=== PATIENT | female | born 1985 | race Caucasian/White ===

== ENCOUNTER 2020-09-14 07:58 | Outpatient (CLI) | payer BC, MEDICAID, SELFPAY ==
--- NOTE | 2020-09-14 08:22 | US_ITS ---
WS: [id number] ULTRASOUND ABDOMEN LIMITED CLINICAL INFORMATION: EPIGASTRIC ABDOMINAL PAIN COMPARISON: None. FINDINGS: Liver Size: Normal. Craniocaudal length: 15.3 cm. Echogenicity: Normal. Surface nodularity: None. Mass (size and location): None. Bile ducts Intrahepatic ducts: Normal. Common bile duct diameter: 0.3 cm. Gallbladder Cholelithiasis Gallstones: Present Gallbladder sludge: Present Gallbladder wall thickening: None. Pericholecystic fluid: None. Sonographic Rivera sign: Absent. Pancreas Not well seen Right kidney: Normal. Hydronephrosis: None. Size: 10.8 cm x 3.8 cm x 4.2 cm. Abdominal aorta and IVC Visualized portions are normal. Ascites: None. US/US abdomen limited [id number] IMPRESSION: 1. Normal liver. 2. Cholelithiasis with gallbladder sludge. No gallbladder wall thickening. Nor mal common bile duct. 3. No hydronephrosis in right kidney.
[2020-09-14 09:29] LABS: Basophils # 0.1 10^3/uL (0.0-0.1); Basophils % 0.8 %; Eosinophils # 0.6 10^3/uL (0.0-0.8); Eosinophils % 7.6 %; Hematocrit 42.8 % (37.0-47.0); Hemoglobin 13.2 g/dL (11.5-15.3); Lymphocytes # 1.9 10^3/uL (0.8-4.8); Mean Corpuscular HGB Conc 30.8 g/dL (30.0-36.0); Mean Corpuscular Hemoglobin 27.3 pg (28.0-34.0); Mean Corpuscular Volume 88.6 fL (81-99); Monocytes # 0.6 10^3/uL (0.2-0.9); Monocytes % 7.6 %; Neutrophils # 4.26 10^3/uL (1.8-7.7); Neutrophils % 57.6 %; Nucleated Red Blood Cells % 0 %; Platelet Count 345 10^3/cmm (130-400); Red Blood Count 4.83 10^6/uL (4.1-5.3); Red Cell Distribution Width 12.7 % (12.1-15.1); White Blood Count 7.4 10^3/uL (4.0-10.0)
[2020-09-14 09:49] LABS: Alanine Aminotransferase 30 U/L (0-33); Albumin Level 4.4 g/dL (3.5-5.2); Alkaline Phosphatase 81 IU/L (35-105); Aspartate Amino Transferase 20 U/L (0-32); Blood Urea Nitrogen 9 mg/dL (6-20); Calcium 8.8 mg/dL (8.5-10.5); Carbon Dioxide 27 mmol/L (22-29); Chloride 103 mmol/L (98-107); Globulin 2.8 g/dL (1.3-4.6); Glomerular Filtration Rate 94.2 mL/min (90-130); Glucose 102 mg/dL (65-115); Lipase 16 U/L (13-60); Osmolality Calculated 287 mOsm/kg (285-295); Sodium 139 mmol/L (136-145); Total Bilirubin 0.4 mg/dL (0.15-1.2); Total Protein 7.2 g/dL (6.6-8.7)
[2020-09-14 10:10] LABS: Anion Gap 13.5 (5-19)
[2020-09-14 10:11] LABS: Potassium 4.5 mmol/L (3.5-5.1)
== END 2020-09-14 07:59 | disposition home or self-care (01) ==
PROVIDERS: PCP Physician Assistant Medical; Visit Provider Physician Assistant Medical
DX: R10.13 Epigastric pain (principal); K80.20 Calculus of gallbladder without cholecystitis without obstruction
CPT/HCPCS: 36415; 76705; 80053; 83690; 85025

== ENCOUNTER → 2020-10-09 10:57 | Outpatient (BNVA) | payer BC, MEDICAID, SELFPAY | PROVIDERS: PCP Physician Assistant Medical; Visit Provider Surgery | DX: Z01.812 Encounter for preprocedural laboratory examination (principal); Z20.822 Contact with and (suspected) exposure to COVID-19 | CPT/HCPCS: 87635 ==

== ENCOUNTER 2020-10-14 10:02 | Day surgery (SDC) | payer BC, MEDICAID, SELFPAY ==
[2020-10-13 12:01] VITALS: BMI 28.3
[2020-10-14] VITALS (8 sets, daily range): BP systolic 122–136; BP diastolic 84–98; PULSE 74–104; RESP 14–20; TEMP 36.7–37.4; O2SAT 95–100
--- NOTE | 2020-10-14 10:23 | ANES.PREANE2 ---
Pre-Anesthetic Assessment Pre-Anesthetic Assessment: Height/Weight: Height 1.65 m Weight 77.111 kg Temp Pulse Resp BP Pulse Ox 99.3 F 90 18 123/98 98 10/14/20 10:17 10/14/20 10:17 10/14/20 10:17 10/14/20 10:17 10/14/20 10:17 Preop Diagnosis: Cholelithiasis Proposed Procedure: Operation Date: 10/14/20 12:05 Proposed Procedures p lap possible open cholecystectomy, [id number] k80.20(Not Applicable) - Derrick Beth MD s EGD(Not Applicable) - Derrick Beth MD Familial anesthetic complications: denies Was Beta Jeaneth taken within 24 hours: N/A Was Clonidine taken within 24 hours: N/A Last intake: Intake Last Liquid Date 10/13/20 Last Liquid Time 22:00 Last Solid Date 10/13/20 Last Solid Time 20:00 Last Intake: 00:00 Social: Social History: No alcohol and No tobacco Exam: Pre-Anes Outpt Exam: alert, oriented x 3, clear to auscultation bilaterally and regular rate & rhythm Airway: Submandibular: WNL Cervical ROM: WNL MP: 1 History/ROS: No significant history except as noted and No significant complaints Pulmonary: Pulmonary: None reported CV/HEM: CV/HEM: None reported : : None reported Hepatic: Hepatic: None reported GI: GI: GERD Metabolic: Metabolic: None reported Musc/skel: Musc/skel: None reported Neuropsych: Neuropsych: None reported Anesthetic Plan: ASA status: 2 Anesthesia: General Risk of > 500 ml blood loss (7ml/kg in children): No PFSH Anesthesia PFSH: Surgical History History of tubal ligation Family History Denies family history of Anesthesia complication Bleeding disorder Social History Smoking and tobacco status: never smoked Alcohol intake: never Female Reproductive History: Date of last menstrual period: 10/06/20 Data Anesthesia Cardiac Studies: No Data to Display
[2020-10-14 10:27] LABS: OR HCG Qualitative Urine Negative (Negative)
[2020-10-14] MEDS: sodium chloride 0.9% 1,000 ML 30 ML IV ×2 (10:32→11:54)
--- NOTE | 2020-10-14 10:37 | W.PM.OPSUD ---
Surgery/Procedure H&P Update DATE OF PROCEDURE: October 14, 2020 DATE H&P PERFORMED: 09/28/20 H&P UPDATE INFORMATION: I have reviewed H&P completed within last 30 days, I have examined patient prior to procedure and No changes to prior documentation PREOP DIAGNOSIS: Cholelithiasis PLANNED PROCEDURE: Operation Date: 10/14/20 12:05 Proposed Procedures p lap possible open cholecystectomy, [id number] k80.20(Not Applicable) - Derrick Beth MD s EGD(Not Applicable) - Derrick Beth MD
--- NOTE | 2020-10-14 11:27 | PM.OP ---
Operative Report Date of procedure: October 14, 2020 Pre-op Diagnosis: 1 GERD 2. Cholelithiasis Post-op Diagnosis: 1. Normal EGD 2. Cholelithiasis Procedure Done: 1. Esophagogastroduodenoscopy without biopsy 2. Laparoscopic cholecystectomy Specimens removed/disposition: Gallbladder Surgeon: Derrick Beth Anesthesia: General Condition: stable Disposition: PACU Procedure: The patient was taken to the operating room and was intubated under general anesthesia. A gastroscope was introduced and advanced up to second portion of the duodenum and slowly withdrawn. Duodenum second portion: Normal Duodenal bulb: Normal Stomach Fundus: Normal body: Normal Antrum: Normal Pylorus: Normal Esophagus GE junction: Normal at 35 cm Rest of esophagus: Normal After the antibiotic had been administered, the abdomen was prepped and draped in a sterile manner. Using a #15 blade, a 1 centimeter infraumbilical curvilinear incision was made and using an open Hayley technique the peritoneal cavity was entered. A 10 millimeter port was placed and 15 millimeters of pneumoperitoneum was created. A 10 millimeter, 30 degrees scope was then introduced. Three 5 millimeter ports were placed in the epigastric, midclavicular and the anterior axillary line two fingerbreadths below the costal margin on the right side under the direct visualization. Ratcheted forceps were introduced into the lateral most port and was used to retract the fundus of the gallbladder cephalad and using forceps the infundibulum of the gallbladder was retracted laterally. Using L-hook cautery the peritoneum overlying the Calot's triangle was opened medially and laterally until the cystic duct and the cystic artery were skeletonized. Dissection was carried along the body of the gallbladder and after ensuring critical view of safety, 4 clips applied on the cystic duct and 3 clips applied on the cystic artery and cut leaving, 3 clips on the remaining portion of the duct and 2 clips on the remaining portion of the artery. The rest of the gallbladder was dissected off the liver using L-hook cautery. There was no bleeding or bile leaking noted from the gallbladder fossa and the clips appeared to be in place. An EndoCatch bag was introduced to remove the gallbladder. All the ports were removed under direct visualization and there was no bleeding noted from the port sites. The fascia of the umbilicus was closed using [id number] 0 Vicryl sutures and the subcutaneous tissue was approximated using 3-0 Vicryl sutures. The skin at all four ports were closed using 4-0 Monocryl and Dermabond. A total of 10 millimeters of 0.5% Marcaine was infiltrated around the port sites. The patient was stable throughout the procedure.
--- NOTE | 2020-10-14 11:43 | SUR.PHASEI ---
PT SLEEPS IF NOT DISTURBED, GOOD RESP EFFORT,VSS IV PATENT ABD SOFT WITH 4 SITES WITH EXOFIN. 8L O2 MASK IN PLACE, SATS 100%
[2020-10-14] MEDS: HYDROcodone-acetaminophen 5-325 mg Tablet 1 TAB PO (12:35)
--- NOTE | 2020-10-14 12:55 | ANE.PACU2 ---
Inpatient post-anesthesia follow up: Airway intact: Yes Vital signs: Temperature 98.4 F Pulse Rate 79 Respiratory Rate 18 Blood Pressure 122/97 Pulse Oximetry 97 Oxygen Delivery Me thod Room Air Oxygen Flow Rate 8 Fraction of Inspir ed Oxygen Hydration adequate: Yes Nausea and vomiting: No Pain level: 2 Mental status: Baseline
[2020-10-14] MEDS: ondansetron 2 mg/ML SDV 2 mL 4 MG IVP (13:25)
== END 2020-10-14 13:31 | disposition home or self-care (01) ==
PROVIDERS: Anesthesiology; PCP Physician Assistant Medical; Visit Provider Surgery
PROC: 0FT44ZZ Resection of Gallbladder, Percutaneous Endoscopic Approach (ICD-10-PCS; CPT 47562; principal; 2020-10-14 12:05)
PROC: 0DJ08ZZ Inspection of Upper Intestinal Tract, Via Natural or Artificial Opening Endoscopic (ICD-10-PCS; CPT 43235; 2020-10-14 12:05)
DX: K80.10 Calculus of gallbladder with chronic cholecystitis without obstruction (principal); K21.9 Gastro-esophageal reflux disease without esophagitis
CPT/HCPCS: 47562; 43235; 81025; 84703; 88304; 96365; 96374; J0690; J1100; J1885; J2250; J2270; J2405; J2704; J2710; J3010; J3490; J7030

== ENCOUNTER 2021-08-24 07:45 | Outpatient (CLI) | payer BC, MEDICAID, SELFPAY ==
--- NOTE | 2021-08-24 08:01 | MM_ITS ---
WS: [id number] DIAGNOSTIC BILATERAL 3D TOMOSYNTHESIS DIGITAL MAMMOGRAM WITH CAD Bilateral breast ultrasound, limited HISTORY: N63.10 - Unspecified lump in the right breast, COMPARISON: None available. TECHNIQUE: Bilateral craniocaudad, mediolateral oblique, and mediolateral views are submitted. Spot c ompression bilateral CC and MLO projections. Computer aided detection utilized. Breast composition: The breasts are extremely dense, which lowers the sensitivity of mammography. Elise asts are very dense. There is a partially obscured lobulated nodule in the anterior RIGHT breast yunier uring 10 mm. This is closely associated but does not directly correspond to the palpable nodule. Ther e is an additional ovoid nodule measuring 9 mm in the inferior medial LEFT breast with well-circumscr ibed margins. Bilateral breast ultrasound, limited. RIGHT breast: At 12:00 in the area patient directed there are multiple small complex cystic masses. C ysts and an area of dense fibrous and glandular tissue. There is through transmission. The most compl ex cyst measures 7 x 8 x 5 mm. At 12:00, 4 cm from nipple is a small cyst or benign lymph node. At 9: 00, 1 cm from the nipple there are multiple small cysts. This does correspond to the mammographic abn ormality. LEFT breast: At 9:00, 3 cm from the nipple is a hypoechoic mass with increased vascularity. This mass is taller than it is wide and measures 8 x 9 x 9 mm. MM/[place] [id number] IMPRESSION: BI-RADS: 4-Suspicious Finding-Biopsy Should Be Considered FOLLOW UP: Biopsy Recommended 1. Ultrasound-guided biopsy recommended of the solid mass LEFT breast at 9:00, 3 cm from the nipple. 2. There are multiple cysts and complex cysts scattered throughout the RIGHT br east. Patient directed palpable area does correspond to a cluster of cysts. Odin e of these are complex. There are additional scattered cysts at 9:00. Notified Bess Choudhury at 08/24/2021 3:14 PM.
== END 2021-08-24 07:46 | disposition home or self-care (01) ==
LOC: RAD 07:48
PROVIDERS: PCP Physician Assistant Medical; Visit Provider Nurse Practitioner Family
DX: N63.15 Unspecified lump in the right breast, overlapping quadrants (principal); N63.25 Unspecified lump in the left breast, overlapping quadrants; N60.01 Solitary cyst of right breast
CPT/HCPCS: 76642; 77062

== ENCOUNTER 2021-09-08 13:11 | Outpatient (CLI) | payer BC, MEDICAID, SELFPAY ==
--- NOTE | 2021-09-08 13:22 | US_ITS ---
WS: [id number] ULTRASOUND-GUIDED LEFT BREAST BIOPSY CLINICAL INFORMATION: mass in left breast FINDINGS: The procedure including risks, benefits, and complications were discussed with the patient who agreed to proceed. Using sterile technique patient was prepped and draped in the usual sterile fashion. Aft er 1% lidocaine utilizing real-time ultrasound guidance 5 14-gauge cores were obtained of the LEFT br east lesion at the 9 o'clock position. No marker clip was placed. No immediate complications. Pathology demonstrates A. Breast, left breast mass , ultrasound-guided biopsy: - Cellular fibroadenoma. - No malignancy identified. US/[place] [id number] IMPRESSION: 1. Uncomplicated ultrasound-guided LEFT breast biopsy. 2. The pathology demonstrates cellular fibroadenoma. No malignancy identified. 3. Recommend 6 month follow-up LEFT breast diagnostic mammography and ultrasou nd postbiopsy. BI-RADS: 2-Benign FOLLOW UP: 6 Month Follow-up
== END 2021-09-08 13:12 | disposition home or self-care (01) ==
LOC: RAD 13:13
PROVIDERS: PCP Physician Assistant Medical; Visit Provider Nurse Practitioner
DX: N63.20 Unspecified lump in the left breast, unspecified quadrant (principal)
CPT/HCPCS: 19083; 88305

== ENCOUNTER 2022-03-04 09:40 | Outpatient (CLI) | payer BC, MEDICAID, SELFPAY ==
--- NOTE | 2022-03-04 10:01 | MM_ITS ---
WS: [id number] LEFT DIGITAL TOMOSYNTHESIS MAMMOGRAPHY WITH CAD. LEFT breast ultrasound, limited HISTORY: 6 MO F/U ABNORMAL MAMMO, benign LEFT breast biopsy follow-up. COMPARISON: 08/24/2021, 09/08/2021 Technique: CC, MLO and ML views. [Spot CC compression. Breast composition: There are scattered areas of fibroglandular density. Again noted is ovoid mass a t 9:00 LEFT breast. Mass measures 11 x 5 mm. No additional mass. This mass has not increased in size . LEFT breast ultrasound, limited. Ultrasound directed to the LEFT breast at 9:00. Slight change in contour of the mass at 9:00. Probably due to prior biopsy site. This mass has not in creased in size. Lobulated hypoechoic mass measures 7 x 7 x 9 mm. No increased vascularity. MM/[place] [id number] IMPRESSION: BI-RADS: 3-Probably Benign FOLLOW UP: 6 Month Follow-up Patient to return to bilateral mammogram, bilateral mammogram August 2022. At th at time recommend additional ultrasound follow-up LEFT breast mass due to its c hange in contour which is probably related to the biopsy.
--- NOTE | 2022-03-04 10:43 | US_ITS ---
WS: [id number] LEFT DIGITAL TOMOSYNTHESIS MAMMOGRAPHY WITH CAD. LEFT breast ultrasound, limited HISTORY: 6 MO F/U ABNORMAL MAMMO, benign LEFT breast biopsy follow-up. COMPARISON: 08/24/2021, 09/08/2021 Technique: CC, MLO and ML views. [Spot CC compression. Breast composition: There are scattered areas of fibroglandular density. Again noted is ovoid mass a t 9:00 LEFT breast. Mass measures 11 x 5 mm. No additional mass. This mass has not increased in size . LEFT breast ultrasound, limited. Ultrasound directed to the LEFT breast at 9:00. Slight change in contour of the mass at 9:00. Probably due to prior biopsy site. This mass has not in creased in size. Lobulated hypoechoic mass measures 7 x 7 x 9 mm. No increased vascularity. US/US breast LT limited* [id number] IMPRESSION: BI-RADS: 3-Probably Benign FOLLOW UP: 6 Month Follow-up Patient to return to bilateral mammogram, bilateral mammogram August 2022. At th at time recommend additional ultrasound follow-up LEFT breast mass due to its c hange in contour which is probably related to the biopsy.
== END 2022-03-04 09:41 | disposition home or self-care (01) ==
LOC: RAD 09:40
PROVIDERS: PCP Nurse Practitioner Family; Visit Provider Nurse Practitioner Family
DX: R92.8 Other abnormal and inconclusive findings on diagnostic imaging of breast (principal)
CPT/HCPCS: 76642; 77061

== ENCOUNTER 2024-12-30 09:24 | Outpatient (CLI) | payer BC, MEDICAID, SELFPAY ==
--- NOTE | 2024-12-30 09:33 | MM_ITS ---
WS: [id number] BILATERAL 3D TOMOSYNTHESIS DIGITAL SCREENING MAMMOGRAPHY WITH CAD CLINICAL INFORMATION: SCREENING HISTORY: Screening mammogram. No current complaints. COMPARISON: 2021 TECHNIQUE: Bilateral CC and MLO views. FINDINGS: The breasts are composed of heterogeneous fibroglandular density tissue, which can limit the detection of small underlying mass lesions. No suspicious mass, asymmetry, calcifications, or architectural distortion. No evidence of malignancy. Incidental punctate and lucent centered calcifications. Ovoid nodule inner LEFT breast is stable. MM/MM [facility] tomosynthesis [id number] IMPRESSION: DENSITY: The breasts are heterogeneously dense, which may obscure small masses. BI-RADS: 2 - Benign FOLLOW UP: 1 Year Follow-up Recommend return to annual screening mammography.
== END 2024-12-30 09:25 | disposition home or self-care (01) ==
LOC: RAD 09:27
PROVIDERS: PCP Nurse Practitioner Family; Visit Provider Family Medicine
DX: Z12.31 Encounter for screening mammogram for malignant neoplasm of breast (principal); R92.333 Mammographic heterogeneous density, bilateral breasts; R92.323 Mammographic fibroglandular density, bilateral breasts; R92.1 Mammographic calcification found on diagnostic imaging of breast; N63.20 Unspecified lump in the left breast, unspecified quadrant
CPT/HCPCS: 77063; 77067